=== PATIENT | male | born 1960 | race Two or more races ===

== ENCOUNTER → 2016-09-18 | Outpatient (REF) | payer OTHER ==
[2016-09-18 13:27] LABS: CALCIUM OXALATE CRYSTALS LARGE
== END ==
LOC: M SMT 12:45
PROVIDERS: ATTEND Nurse Practitioner Women's Health
DX: N20.0 Calculus of kidney (principal)

== ENCOUNTER → 2017-06-01 | Outpatient (CLI) | payer OTHER ==
[~2017-06-01] MED LIST: ISOVUE-370 76% 100ML VIAL (Q9967) As Ordered
== END ==
LOC: M RAD 11:21
DX: I63.9 Cerebral infarction, unspecified (principal)
CPT/HCPCS: Q9967

== ENCOUNTER → 2017-06-02 | Outpatient (CLI) | payer OTHER | LOC: M PLARAD 14:01 | DX: E07.9 Disorder of thyroid, unspecified (principal) | CPT/HCPCS: 78815 ==